=== PATIENT | male | born 1975 | race Asian ===

== ENCOUNTER 2017-03-18 13:40 | Outpatient (CLI) | payer OTHER ==
[2017-03-18 14:10] LABS: PLATELET COUNT 487 K/uL (142-355)
[2017-03-18 14:37] LABS: POTASSIUM 4.8 mmol/L (3.6-5.2); SODIUM 134 mmol/L (136-145)
== END 2017-03-18 14:40 | disposition home or self-care (01) ==
LOC: LABW 13:40
PROVIDERS: Family Medicine
DX: E11.49 Type 2 diabetes mellitus with other diabetic neurological complication (principal); I10 Essential (primary) hypertension
CPT/HCPCS: 36415; 80053; 80061; 81000; 82043; 82570; 82652; 83036; 83735; 84436; 84443; 84550; 85027

== ENCOUNTER 2022-01-14 12:02 | Emergency (ER) | payer OTHER ==
[~2022-01-14] VITALS: Ht 170.2 cm; Wt 72.6 kg
[2022-01-14 12:29] LABS: PLATELET COUNT 257 K/uL (142-355)
[2022-01-14 12:48] LABS: POTASSIUM 7.3 mmol/L (3.6-5.2)
[2022-01-14 15:15] VITALS: BP 164/94; TEMP 98
== END 2022-01-14 15:15 | disposition short-term general hospital (02) ==
LOC: ED 12:02
PROVIDERS: Emergency Medicine
PROC: 0T9B70Z Drainage of Bladder with Drainage Device, Via Natural or Artificial Opening (ICD-10-PCS; principal; 2022-01-14)
DX: N17.8 Other acute kidney failure (principal); N25.89 Other disorders resulting from impaired renal tubular function; E87.5 Hyperkalemia
CPT/HCPCS: 36600; 51702; 80053; 81002; 82607; 82728; 82746; 82805; 82948; 83540; 83550; 83880; 84443; 84466; 84484; 85027; 93005; 96360; 96365; 96375; 96376; 99284; J0610; J1815; J3490; J7060

== ENCOUNTER 2022-04-23 09:10 | Emergency (ER) | payer OTHER ==
[~2022-04-23] VITALS: Ht 170.2 cm; Wt 72.6 kg
[2022-04-23 10:01] LABS: PLATELET COUNT 271 K/uL (142-355)
[2022-04-23 10:25] LABS: PARTIAL THROMBOPLASTIN TIME 33.9 SECONDS (24.5-33.6)
[2022-04-23 10:26] LABS: POTASSIUM 6.1 mmol/L (3.6-5.2)
[2022-04-23 15:36] LABS: POTASSIUM 5.6 mmol/L (3.6-5.2)
[2022-04-23 20:25] VITALS: BP 170/90; TEMP 98.4
== END 2022-04-23 20:30 | disposition short-term general hospital (02) ==
LOC: ED 09:10
PROVIDERS: Emergency Medicine
DX: N18.9 Chronic kidney disease, unspecified (principal)
CPT/HCPCS: 80053; 83690; 83880; 84484; 85027; 85379; 85610; 85730; 93005; 96365; 96375; 99284; J0610; J1815; J3490; J7060

== ENCOUNTER 2022-11-11 12:04 | Outpatient (CLI) | payer OTHER ==
[2022-11-11 12:25] LABS: PLATELET COUNT 248 K/uL (142-355)
[2022-11-11 12:39] LABS: POTASSIUM 5.4 mmol/L (3.6-5.2)
== END 2022-11-11 17:00 | disposition home or self-care (01) ==
LOC: LAB 12:04
PROVIDERS: ATTEND Family Medicine
DX: I12.9 Hypertensive chronic kidney disease with stage 1 through stage 4 chronic kidney disease, or unspecified chronic kidney disease (principal); N18.9 Chronic kidney disease, unspecified; E11.9 Type 2 diabetes mellitus without complications
CPT/HCPCS: 80053; 82306; 83036; 84134; 85027; 85652; 86140

== ENCOUNTER 2022-11-12 09:41 | Outpatient (CLI) | payer OTHER | END 2022-11-12 19:14 | disposition home or self-care (01) | LOC: US 09:41 | PROVIDERS: ATTEND Family Medicine | DX: L89.610 Pressure ulcer of right heel, unstageable (principal) ==

== ENCOUNTER 2022-12-01 08:11 | Outpatient (CLI) | payer OTHER | END 2022-12-01 20:33 | disposition home or self-care (01) | LOC: NM 08:11 | PROVIDERS: ATTEND Family Medicine | DX: L89.619 Pressure ulcer of right heel, unspecified stage (principal) | CPT/HCPCS: A9561 ==

== ENCOUNTER 2023-01-25 09:50 | Emergency (ER) | payer OTHER ==
[~2023-01-25] VITALS: Ht 170.2 cm; Wt 45.4 kg
[2023-01-25 09:52] VITALS: BP 146/73; TEMP 97.8
[2023-01-25 11:15] LABS: PLATELET COUNT 577 K/uL (142-355)
[2023-01-25 11:48] LABS: PARTIAL THROMBOPLASTIN TIME 38.7 SECONDS (23.9-36.7)
[2023-01-25 12:09] LABS: POTASSIUM 5.6 mmol/L (3.6-5.2)
== END 2023-01-25 16:49 | disposition short-term general hospital (02) ==
LOC: ED 09:50
PROVIDERS: Family Medicine
DX: E87.20 Acidosis, unspecified (principal); E16.2 Hypoglycemia, unspecified; Z95.0 Presence of cardiac pacemaker
CPT/HCPCS: 36600; 51702; 80053; 80143; 80179; 81000; 82805; 82948; 83605; 83735; 84100; 84484; 85027; 85379; 85610; 85730; 87040; 93005; 96361; 96365; 96366; 96375; 96376; 99285; J0330; J0612; J2250; J2270; J3370; J3490; J7060